=== PATIENT | female | born 1995 | race Caucasian/White ===

== ENCOUNTER → 2019-09-09 | Day surgery (SDC) | payer MEDICAID ==
[~2019-09-09] VITALS: Ht 160 cm; Wt 102.0 kg
[~2019-09-09] MED LIST: CHOL100018 PO; LIDOCAINE/PF 2% 5 ML SYRINGE IVP ONE; MONT10TA21 PO; NORG1TAB12 PO; PROPOFOL 1% 20 ML VIAL IVP ONE; SODIUM CHLORIDE 0.9% 1,000 ML IV ONE; SODIUM CHLORIDE 0.9% 1,000 ML ONE
== END | disposition home or self-care (01) ==
LOC: SURGERY 13:03
PROVIDERS: ATTEND Internal Medicine Gastroenterology
DX: R10.9 Unspecified abdominal pain (principal); K29.50 Unspecified chronic gastritis without bleeding; K44.9 Diaphragmatic hernia without obstruction or gangrene; K22.10 Ulcer of esophagus without bleeding; K21.9 Gastro-esophageal reflux disease without esophagitis; J45.909 Unspecified asthma, uncomplicated; F41.9 Anxiety disorder, unspecified; Z91.010 Allergy to peanuts; F12.90 Cannabis use, unspecified, uncomplicated; Z79.899 Other long term (current) drug therapy; Z98.890 Other specified postprocedural states
CPT/HCPCS: 43239; 84703; 88305; 88312; 88313; C1769; J2704; J3490; J7030

== ENCOUNTER 2022-12-22 12:08 | Day surgery (SDC) | payer MEDICAID ==
[~2022-12-22 12:08] MED LIST changes: -CHOL100018 PO; +CHOL25TA4 PO; -LIDOCAINE/PF 2% 5 ML SYRINGE IVP ONE; +MONT-35 PO; -MONT10TA21 PO; -PROPOFOL 1% 20 ML VIAL IVP ONE; +SIMV-261 PO
[2022-12-22] MEDS ORDERED: PROPOFOL 1% ISO-OSM 1000 MG/100 ML BOTTLE IV ONE (12:09)
[2022-12-22] MEDS ORDERED: LIDOCAINE/PF 2% 5 ML VIAL IM ONE (12:09)
== END 2022-12-22 15:45 | disposition home or self-care (01) ==
LOC: SURGERY 12:08
PROVIDERS: ATTEND Internal Medicine Gastroenterology
DX: K52.9 Noninfective gastroenteritis and colitis, unspecified (principal); F12.90 Cannabis use, unspecified, uncomplicated; F41.9 Anxiety disorder, unspecified; J45.909 Unspecified asthma, uncomplicated; Z98.890 Other specified postprocedural states; Z79.899 Other long term (current) drug therapy; F31.70 Bipolar disorder, currently in remission, most recent episode unspecified; E66.9 Obesity, unspecified
CPT/HCPCS: 45380; 36415; 84703; C1769; J3490; J2704; J7030; 88305

== ENCOUNTER 2022-12-26 07:37 | Day surgery (SDC) | payer MEDICAID ==
[~2022-12-26] VITALS: Ht 162.6 cm; Wt 105.4 kg
[~2022-12-26 07:37] MED LIST changes: -SODIUM CHLORIDE 0.9% 1,000 ML IV ONE
[2022-12-26] MEDS ORDERED: PROPOFOL 1% 20 ML VIAL IVP ONE (07:38)
[2022-12-26] MEDS ORDERED: LIDOCAINE/PF 2% 5 ML VIAL CAUDAL ONE (07:38)
[2022-12-26] MEDS ORDERED: SODIUM CHLORIDE 0.9% 1,000 ML IV ONE (09:30)
== END 2022-12-26 12:10 | disposition home or self-care (01) ==
LOC: SURGERY 07:37
PROVIDERS: ATTEND Internal Medicine Gastroenterology
DX: K31.84 Gastroparesis (principal); F31.70 Bipolar disorder, currently in remission, most recent episode unspecified; E66.9 Obesity, unspecified; F12.90 Cannabis use, unspecified, uncomplicated; Z79.899 Other long term (current) drug therapy; Z98.890 Other specified postprocedural states
CPT/HCPCS: 43239; C1769; J2704; J3490; J7030; 88305; 88312; 88313